=== PATIENT | male | born 1980 | race Two or more races ===

== ENCOUNTER 2016-12-18 00:29 | Emergency (ER) | payer OTHER ==
[2016-12-18 02:34] VITALS: BP 159/108
== END 2016-12-18 02:34 | disposition home or self-care (01) ==
LOC: ED 00:29
DX: S70.01XA Contusion of right hip, initial encounter (principal); S89.91XA Unspecified injury of right lower leg, initial encounter; R03.0 Elevated blood-pressure reading, without diagnosis of hypertension; W22.8XXA Striking against or struck by other objects, initial encounter; Y93.39 Activity, other involving climbing, rappelling and jumping off; Y92.89 Other specified places as the place of occurrence of the external cause; Y99.8 Other external cause status
CPT/HCPCS: J1885; Q0092